=== PATIENT | male | born 1965 | race Caucasian/White ===

== ENCOUNTER 2023-01-21 07:36 | Outpatient (CLI) | payer OTHER | END 2023-01-21 07:54 | disposition home or self-care (01) | LOC: MRI 07:36 | PROVIDERS: ATTEND Specialist | DX: K74.69 Other cirrhosis of liver (principal); D35.01 Benign neoplasm of right adrenal gland; D35.02 Benign neoplasm of left adrenal gland | CPT/HCPCS: 74183 ==